=== PATIENT | female | born 1955 | race Caucasian/White ===

== ENCOUNTER → 2022-06-15 09:56 | Outpatient (CLI) | payer OTHER, SELFPAY ==
--- NOTE | 2022-06-15 | DI.NM.S_ITS ---
PROCEDURE: [place] BONE SCAN WHOLE BODY RADIOPHARMACEUTICAL: 19.5 mCi Tc-99m MDP IV. INDICATIONS: Malignant neoplasm of central portion of left female breast TECHNIQUE: Delayed whole-body scintigrams were obtained approximately 3-4 hours after intravenous injection of radiotracer. Anterior and posterior views were acquired from vertex to feet. Additional left and right oblique views of the chest were obtained. COMPARISON: None. FINDINGS: Normal radiotracer excretion is seen in the renal collecting system and urinary bladder. Mild S-shaped scoliosis. Mild degenerative changes are seen in the upper and lower extremities. Focal radiotracer uptake are noted in 2 consecutive right-sided ribs, and in the left wrist. The latter with a linear photopenia compatible with hardware. This pattern suggestive of trauma/injury rather than metastases. IMPRESSION: No definite metastases. Suspected traumatic injuries as above to the ribs and left wrist. Consider correlation with cross-sectional imaging to confirm if needed. Dictated by: Emmanuel Mcdonald M.D. on 06/15/2022 at 14:23 Approved by: Emmanuel Mcdonald M.D. on 06/15/2022 at 14:25
== END ==
PROVIDERS: PCP Specialist; Referring Provider Internal Medicine; Visit Provider Internal Medicine
DX: C50.112 Malignant neoplasm of central portion of left female breast (principal)
CPT/HCPCS: 78306; A9503

== ENCOUNTER → 2024-09-05 09:40 | Outpatient (CLI) | payer MEDICARE, OTHER, SELFPAY ==
--- NOTE | 2024-09-05 09:49 | DI.NM.S_ITS ---
PROCEDURE: [place] BONE SCAN WHOLE BODY RADIOPHARMACEUTICAL: 21.1 mCi Tc-99m MDP IV. INDICATIONS: OSTEOPOROSIS/PATH FRACTURE/HX BREAST CA/ELEV ALK TECHNIQUE: Delayed whole-body scintigrams were obtained approximately 3-4 hours after intravenous injection of radiotracer. Anterior and posterior views were acquired from vertex to feet. COMPARISON: [place], [place], [place] BONE SCAN WHOLE BODY, 06/15/2022, 11:41. FINDINGS: No abnormal uptake of radiotracer is seen within the bones of the calvarium or bones of the face. No abnormal radiotracer uptake is seen within the cervical spine, thoracic spine, or lumbar spine. No abnormal uptake of radiotracer is seen within the sternum. No abnormal rib uptake is seen. A mild degree of symmetric uptake is seen within the region of the shoulders, which is attributed to degenerative change and is not considered to be pathologic. No abnormal uptake is seen within the upper extremities. No abnormal uptake is seen within the pelvis or within the lower extremities. No abnormal soft tissue uptake is seen. The kidneys demonstrate normal positions. IMPRESSION: No findings of bony metastasis can be seen. Dictated by: Greg Hirsch M.D. on 09/05/2024 at 16:50 Approved by: Greg Hirsch M.D. on 09/05/2024 at 16:50
== END ==
LOC: NUCM 09:48
PROVIDERS: PCP Specialist; Referring Provider Internal Medicine; Visit Provider Internal Medicine
DX: M81.0 Age-related osteoporosis without current pathological fracture (principal); Z85.3 Personal history of malignant neoplasm of breast; R74.8 Abnormal levels of other serum enzymes
CPT/HCPCS: 78306; A9503